=== PATIENT | male | born 1945 | race Caucasian/White ===

== ENCOUNTER 2017-08-18 15:33 | Emergency (ER) | payer OTHER ==
[2017-08-18 15:38] VITALS: RESP 18; TEMP 97.9
[2017-08-18] MEDS ORDERED: PHYTONADIONE 2.5 MG/2.5 ML ORAL UDL PO ONE (15:59)
--- NOTE | 2017-08-18 16:03 | EDPHY ---
H & P Stated Complaint: Sent by MD - INR at 8.3. Time Seen by Provider: 08/18/17 15:34 HPI/ROS: CHIEF COMPLAINT: Supratherapeutic INR HISTORY OF PRESENT ILLNESS: The patient presents to the ED with supratherapeutic INR. He is anticoagulated for valve replacement. Goal INR is typically 2.5-3.5. The patient's INR was 11 yesterday. It is 8.3 today. He was referred to the ED for vitamin K by his transition assistant at [facility]. The patient denies any complaints of hemoptysis, hematuria, hematochezia or melena. The patient denies any acute medical complaints. REVIEW OF SYSTEMS: A comprehensive 10 point review of systems is otherwise negative aside from elements mentioned in the history of present illness. Source: Patient Exam Limitations: No limitations - Personal History Current Tetanus Diphtheria and Acellular Pertussis (TDAP): Yes Tetanus Vaccine Date: 2016 - Medical/Surgical History Hx Asthma: No Hx Chronic Respiratory Disease: Yes Hx Diabetes: No Hx Cardiac Disease: Yes Hx Renal Disease: No Hx Cirrhosis: No Hx Alcoholism: No Hx HIV/AIDS: No Hx Splenectomy or Spleen Trauma: No Other PMH: Heart valves. - Social History Smoking Status: Never smoked - Physical Exam Exam: General Appearance: Alert, no distress Eyes: Pupils equal and round no pallor or injection ENT, Mouth: Mucous membranes moist Skin: Superficial ecchymoses noted Musculoskeletal: Atraumatic Extremities: symmetrical, full range of motion Constitutional: Initial Vital Signs Temperature (C) 36.6 C 08/18/17 15:35 Heart Rate 58 L 08/18/17 15:35 Respiratory Rate 18 08/18/17 15:35 Blood Pressure 155/80 H 08/18/17 15:35 O2 Sat (%) 95 08/18/17 15:35 O2 Delivery Mode Room Air Allergies/Adverse Reactions: Sulfa (Sulfonamide Antibiotics) Allergy (Intermediate, Verified 05/01/13 10:16) rash, itching Home Medications: Medication Instructions Recorded Carvedilol 25 mg PO BID 05/01/13 Fish Oil-Dose Unknown 05/01/13 Lisinopril [Zestril 20 mg (RX)] 20 mg PO DAILY 05/01/13 Rosuvastatin Calcium [Crestor 20mg 20 mg PO DAILY 05/01/13 (RX)] Terazosin HCl 2 mg PO DAILY 05/01/13 [place]istle [place] DAILY 05/01/13 Vitamin D-Dose Unknown 05/01/13 Warfarin Sodium 7.5 mg PO 05/01/13 Levothyroxine 11/04/13 Medical Decision Making ED Course/Re-evaluation: The patient is well-appearing. He presents to the ED with an INR of 8.3. There is no active bleeding. The patient is given 2.5 mg of vitamin K. The patient is advised to hold his next dose of Coumadin and resume when advised by his regular transition assistant. Departure - Departure Disposition: Home, Routine, Self-Care Clinical Impression: Supratherapeutic INR Condition: Good Instructions: Warfarin (By mouth) Additional Instructions: 1. Hold your next dose of Coumadin. Recheck INR tomorrow. Check with your regular provider at [facility] when to resume your regular Coumadin dosage. 2. Return to the ED for any signs of active bleeding, marce stools, lightheadedness, acute pain or other concerns.
[2017-08-18 16:27] VITALS: BP 125/74; PULSE 51; O2SAT 96
== END 2017-08-18 16:28 | disposition home or self-care (01) ==
DX: R79.1 Abnormal coagulation profile (principal); Z79.01 Long term (current) use of anticoagulants

== ENCOUNTER 2017-11-28 19:30 | Emergency (ER) | payer OTHER ==
[2017-11-28 19:37] VITALS: RESP 16; TEMP 97.9
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
[2017-11-28 20:51] LABS: PLATELET COUNT 166 10^3/uL (150-400)
[2017-11-28 21:00] LABS: INR 3.05 (0.83-1.16); PROTIME(PATIENT) 31.4 SEC (12.0-15.0)
[2017-11-28 21:55] VITALS: BP 115/71; PULSE 63; O2SAT 95
== END 2017-11-28 21:55 | disposition home or self-care (01) ==
DX: F10.10 Alcohol abuse, uncomplicated (principal); I50.9 Heart failure, unspecified; Z86.73 Personal history of transient ischemic attack (TIA), and cerebral infarction without residual deficits
CPT/HCPCS: G0480